=== PATIENT | female | born 1955 | race Caucasian/White ===

== ENCOUNTER 2017-03-04 06:00 | Day surgery (SDC) | payer OTHER ==
[~2017-03-04] VITALS: Ht 160 cm; Wt 84.3 kg
[~2017-03-04 06:00] MED LIST: ATORVASTATIN PO; LOSARTAN PO; OMEPRAZOLE PO
[2017-03-04 07:05] VITALS: Ht 160 cm; Wt 84.3 kg
[2017-03-04] MEDS ORDERED: AMLO-147 PO (07:13)
[2017-03-04 07:32] VITALS: BP 145/75; PULSE 68; RESP 18
[2017-03-04] MEDS ORDERED: PROPOFOL 60 ML ONE (08:09)
--- NOTE | 2017-03-04 08:21 | OPPN ---
Date/Time of Note Date/Time of Note DATE: 03/04/17 TIME: 08:20 Operative Report Preoperative Diagnosis Screening Postoperative Diagnosis Sigmoid polyp was removed Internal hemorrhoids Operation/Procedure Performed Colonoscopy and biopsy Surgeon see signature line [employer] assistant None Anesthesia: MAC Estimated blood loss: none Transfusion Required none Specimen Sigmoid colon biopsy Grafts/Implants none Complications none ANNAMARIE GUAMAN MD Mar 04, 2017 08:21
[2017-03-04 08:48] VITALS: BP 107/63; PULSE 56; RESP 16
--- NOTE | 2017-03-04 12:31 | GILP ---
DATE OF PROCEDURE: 03/04/2017 NAME OF PROCEDURE: Colonoscopy and biopsy. SURGEON: Annamarie Mercado MD PREOPERATIVE DIAGNOSIS: Screening colonoscopy. POSTOPERATIVE DIAGNOSES: 1. Colonoscopy all the way to the cecum. 2. Small sigmoid colon polyp was removed. 3. Internal hemorrhoids. INDICATION FOR THE PROCEDURE: Ms. Kathy Peres is a 62-year-old female patient who was schedu led for screening colonoscopy. The procedure and possible complications are well explained to the patient. The patient understood and consented to the procedure. DESCRIPTION OF PROCEDURE: Under the influence of anesthesia, the colonoscope was carefully introduc ed in the rectum and under direct vision, it was advanced all the way to the cecum. FINDINGS: The patient had a small sigmoid colon polyp and it was removed using the biopsy forceps. She had internal hemorrhoids. She tolerated the procedure very well and there was no complication from the procedure. At the end of the procedure, she was awake with stable vital signs and she was discharged home to the care of h er family. IMPRESSION: Please see postoperative diagnoses. PLAN: Next screening colonoscopy in 10 years. Dictated By: ANNAMARIE HARO/WILFREDO Conf#: [id number] DID#: [id number]
== END 2017-03-04 16:53 | disposition home or self-care (01) ==
LOC: GIL 06:00
PROVIDERS: ATTEND Internal Medicine Gastroenterology
DX: Z12.11 Encounter for screening for malignant neoplasm of colon (principal); D12.5 Benign neoplasm of sigmoid colon; K64.8 Other hemorrhoids; I10 Essential (primary) hypertension; E78.5 Hyperlipidemia, unspecified
CPT/HCPCS: 45380; Z7610

== ENCOUNTER 2018-05-22 15:09 | Inpatient (IN) | payer OTHER ==
[~2018-05-22] VITALS: Ht 157.5 cm; Wt 88.2 kg
[~2018-05-22 15:09] MED LIST changes: +AMLO-147 PO; -OMEPRAZOLE PO
--- NOTE | 2018-05-22 16:20 | ERD ---
ER Documentation Chief Complaint Chief Complaint Complains of headache with blurred vision and facial droop since today HPI 63-year-old female who presents with family member. The patient has had greater than 24 hours of symptoms that include headache, right facial droop sparing the forehead, generalized weakness and blurred vision. Patient denies any significant slurred speech or motor weakness of the upper or lower extremities. Headache is mild and frontal and not sudden in onset. Blood pressure was in the 200s at home and improving currently. During the patient's encounter translation services were utilized Language: [Aremenian] Source: [Family] ROS All systems reviewed and are negative except as per history of present illness. Medications Home Meds Reported Medications Amlodipine Besylate* (Amlodipine Besylate*) 10 Mg Tablet, 10 MG PO DAILY, #30 TAB 03/04/17 [Atorvastatin] No Conflict Check, PO DAILY 12/12/15 [Losartan] No Conflict Check, PO DAILY 12/12/15 Allergies Allergies: Uncoded Allergies: PCN (Adverse Reaction, Severe, RASHES, 03/04/17) PMhx/Soc History of Surgery: Yes (LEFT ANKLE) Anesthesia Reaction: No Hx Neurological Disorder: No Hx Respiratory Disorders: No Hx Cardiac Disorders: Yes (HEART PALPITATION) Hx Psychiatric Problems: No Hx Miscellaneous Medical Probl: Yes (HYPERLIPEDEMIA) Hx Alcohol Use: No Hx Substance Use: No Hx Tobacco Use: No Smoking Status: Never smoker FmHx Family History: No diabetes Physical Exam Vitals Vital Signs Date Temp Pulse Resp B/P (MAP) Pulse Ox O2 O2 Flow FiO2 Time Delivery Rate 05/22/18 72 20 131/80 98 Room Air 16:22 (97) 05/22/18 99.4 75 20 167/89 97 15:21 (115) Physical Exam General: Well developed, well nourished, no acute distress Head: Normocephalic, atraumatic. Eyes: Pupils equally reactive, EOM intact ENT: Moist mucous membranes Neck: Supple, no lymphadenopathy Respiratory: Lungs clear bilaterally, no distress Cardiovascular: RRR, no murmurs, rubs, or gallops Abdominal: Soft, non-tender, non-distended, no peritoneal signs : Deferred MSK: No edema, no unilateral swelling, 5/5 strength Neurologic: Alert and oriented, moving all extremities, the patient has a right- sided facial droop with sparing of the forehead. No pronator drift. 5 out of 5 strength. Normal rapid alternating movements. Steady gait without ataxia. Skin: No rash Psych: Normal mood Result Diagram: 05/22/18 1544 05/22/18 1544 Results 24 hrs Laboratory Tests Test 05/22/18 15:44 05/22/18 15:51 White Blood Count 6.5 10^3/ul Red Blood Count 4.08 10^6/ul Hemoglobin 13.1 g/dl Hematocrit 37.9 % Mean Corpuscular Volume 92.9 fl Mean Corpuscular Hemoglobin 32.1 pg Mean Corpuscular Hemoglobin Concent 34.6 g/dl Red Cell Distribution Width 11.2 % Platelet Count 163 10^3/UL Mean Platelet Volume 10.1 fl Immature Granulocytes % 0.500 % Neutrophils % 58.7 % Lymphocytes % 26.9 % Monocytes % 10.2 % Eosinophils % 3.2 % Basophils % 0.5 % Nucleated Red Blood Cells % 0.0 /100WBC Immature Granulocytes # 0.030 10^3/ul Neutrophils # 3.8 10^3/ul Lymphocytes # 1.7 10^3/ul Monocytes # 0.7 10^3/ul Eosinophils # 0.2 10^3/ul Basophils # 0.0 10^3/ul Nucleated Red Blood Cells # 0.0 10^3/ul Prothrombin Time 12.7 Sec Prothrombin Time Ratio 1.0 INR International Normalized Ratio 0.94 Activated Partial Thromboplast Time 32.6 Sec Sodium Level 144 mmol/L Potassium Level 4.2 mmol/L Chloride Level 102 mmol/L Carbon Dioxide Level 27 mmol/L Anion Gap 15 Blood Urea Nitrogen 23 mg/dl Creatinine 1.02 mg/dl Est Glomerular Filtrat Rate mL/min 54 mL/min Glucose Level 110 mg/dl Hemoglobin A1c 5.3 % Calcium Level 9.8 mg/dl Total Bilirubin 0.9 mg/dl Direct Bilirubin 0.00 mg/dl Indirect Bilirubin 0.9 mg/dl Aspartate Amino Transf (AST/SGOT) 30 IU/L Alanine Aminotransferase (ALT/SGPT) 42 IU/L Alkaline Phosphatase 74 IU/L Troponin I < 0.012 ng/ml Total Protein 7.8 g/dl Albumin 4.7 g/dl Globulin 3.10 g/dl Albumin/Globulin Ratio 1.51 Triglycerides Level 326 mg/dl Cholesterol Level 186 mg/dl LDL Cholesterol, Calculated 82 mg/dl HDL Cholesterol 39 mg/dl Cholesterol/HDL Ratio 4.7 RATIO Urine Color STRAW Urine Clarity CLEAR Urine pH 5.0 Urine Specific [place] 1.011 Urine Ketones NEGATIVE mg/dL Urine Nitrite NEGATIVE mg/dL Urine Bilirubin NEGATIVE mg/dL Urine Urobilinogen NEGATIVE mg/dL Urine Leukocyte Esterase NEGATIVE Familia/ul Urine Microscopic RBC 2 /HPF Urine Microscopic WBC 1 /HPF Urine Hemoglobin 1+ mg/dL Urine Glucose NEGATIVE mg/dL Urine Total Protein NEGATIVE mg/dl Urine Opiates Screen Negative Urine Barbiturates Negative Urine Amphetamines Screen Negative Urine Benzodiazepines Screen Negative Urine Cocaine Screen Negative Urine Cannabinoids Negative Current Medications Medications Dose Sig/Tina Start Time Status Last (Trade) Ordered Route PRN Stop Time Admin Dose Reason Admin Aspirin 162 mg ONCE ONCE 05/22/18 DC 05/22/18 (Aspirin) PO 16:30 17:11 05/22/18 16:31 Ondansetron 4 mg ER BRIDGE 05/22/18 HCl (Zofran PRN IV 17:30 Inj) NAUSEA/VOMITI 05/23/18 17:29 NG 650 mg ER BRIDGE 05/22/18 Acetaminophen PRN PO 17:30 (Tylenol .MILD PAIN 05/23/18 17:29 Tab) 1-3 OR TEMP Procedures/MDM EKG, MONITORS, & DIAGNOSTIC IMAGING: EKG: I reviewed and interpreted a 12-lead EKG. Rhythm: Normal sinus rhythm ST Changes: No contiguous ST segment elevations T waves: No contiguous T wave inversions Impression: [No evidence of acute cardiac ischemia] Chest x-ray: I reviewed and interpreted a 1 view of the chest Mediastinum: No enlargement Cardiac silhouette: No cardiomegaly Airspace: Clear lung dee bilaterally without evidence of pneumothorax Bones: No evidence of fracture CT brain: IMPRESSION: No acute intracranial pathology identified. RPTAT: VV LAB INTERPRETATION: I reviewed the laboratory testing and it shows [no evidence of acute process] MEDICAL DECISION MAKING: Patient presents with greater than 24 hours of focal neurologic deficit. This is concerning for stroke. The patient has a facial droop on the right side with forehead sparing concerning for central process rather than peripheral 7th nerve palsy. Brantley's palsy still on the differential but needs to be diagnosis of exclusion at this point. Patient warrants inpatient hospitalization for further stroke evaluation and workup. The patient is not a TPA candidate given symptoms greater than 24 hours. Similar reason and goes for interventional candidacy. ER COURSE: * Aspirin after negative CT brain * The patient's blood pressure is improving without intervention. The patient will be admitted for further management and workup CONSULTATION: [None] DISPOSITION PLAN: Telemetry admission for management of possible stroke Accepting care team and consultations: I discussed the current laboratory data, diagnostic imaging and emergency care provided. Admitting team: Dr. Ching Admitting team indication: Insurance directed Departure Diagnosis: Primary Impression: Facial droop Additional Impression: Hypertensive urgency Condition: Stable CARLOS A MELENDEZ MD May 22, 2018 16:20
[2018-05-22] MEDS ORDERED: ASPIRIN 81 MG TAB PO ONE (16:30)
[2018-05-22] MEDS ORDERED: ONDANSETRON 4 MG INJ IV PRN (17:30)
[2018-05-22] MEDS ORDERED: ACETAMINOPHEN 325 MG TAB PO PRN (17:30)
[2018-05-22] MEDS ORDERED: HYDROCODONE/APAP (5/325) TAB PO PRN (18:00)
[2018-05-22] MEDS ORDERED: NACL 0.9% 3 ML SYG IV SCH (18:00)
[2018-05-22 18:40] VITALS: BP 147/72; PULSE 65; RESP 18
[2018-05-22 18:42] VITALS: PULSE 68
[2018-05-22 18:45] VITALS: Ht 157.5 cm; Wt 88.2 kg
--- NOTE | 2018-05-22 19:16 | HP ---
Date/Time of Note Date/Time of Note DATE: 05/22/18 TIME: 19:10 Assessment/Plan VTE Prophylaxis Pharmacological prophylaxis: heparin Lines/Catheters IV Catheter Type (from Nrs): Saline Lock Assessment/Plan Hospital Course 63 yo female with h/o hypertension, "enlarged heart" presents with headache and left sided facial droop - Most concerning is this represents a stroke syndrome, though reassuring that her head CT is normal. Perhaps a perihperal neuropathy, though does not involve forehead as one would expect with [place] - MRI pending - US carotids - Neurology consult Hypertension: - Continue home losartan and amlodipine "Enlarged heart": - Check echocardiogram Discharge pending above workup Result Diagram: 05/22/18 1544 05/22/18 1544 Results 24hrs Laboratory Tests Test 05/22/18 15:44 05/22/18 15:51 White Blood Count 6.5 Red Blood Count 4.08 L Hemoglobin 13.1 Hematocrit 37.9 Mean Corpuscular Volume 92.9 Mean Corpuscular Hemoglobin 32.1 Mean Corpuscular Hemoglobin Concent 34.6 Red Cell Distribution Width 11.2 L Platelet Count 163 Mean Platelet Volume 10.1 Immature Granulocytes % 0.500 H Neutrophils % 58.7 Lymphocytes % 26.9 Monocytes % 10.2 Eosinophils % 3.2 Basophils % 0.5 Nucleated Red Blood Cells % 0.0 Immature Granulocytes # 0.030 Neutrophils # 3.8 Lymphocytes # 1.7 Monocytes # 0.7 Eosinophils # 0.2 Basophils # 0.0 Nucleated Red Blood Cells # 0.0 Prothrombin Time 12.7 Prothrombin Time Ratio 1.0 INR International Normalized Ratio 0.94 Activated Partial Thromboplast Time 32.6 Sodium Level 144 Potassium Level 4.2 Chloride Level 102 Carbon Dioxide Level 27 Anion Gap 15 H Blood Urea Nitrogen 23 H Creatinine 1.02 H Est Glomerular Filtrat Rate mL/min 54 L Glucose Level 110 Hemoglobin A1c 5.3 Calcium Level 9.8 Total Bilirubin 0.9 Direct Bilirubin 0.00 Indirect Bilirubin 0.9 Aspartate Amino Transf (AST/SGOT) 30 Alanine Aminotransferase (ALT/SGPT) 42 Alkaline Phosphatase 74 Troponin I < 0.012 Total Protein 7.8 Albumin 4.7 Globulin 3.10 Albumin/Globulin Ratio 1.51 Triglycerides Level 326 H Cholesterol Level 186 LDL Cholesterol, Calculated 82 HDL Cholesterol 39 Cholesterol/HDL Ratio 4.7 Urine Color STRAW Urine Clarity CLEAR Urine pH 5.0 Urine Specific [place] 1.011 Urine Ketones NEGATIVE Urine Nitrite NEGATIVE Urine Bilirubin NEGATIVE Urine Urobilinogen NEGATIVE Urine Leukocyte Esterase NEGATIVE Urine Microscopic RBC 2 Urine Microscopic WBC 1 Urine Hemoglobin 1+ H Urine Glucose NEGATIVE Urine Total Protein NEGATIVE Urine Opiates Screen Negative Urine Barbiturates Negative Urine Amphetamines Screen Negative Urine Benzodiazepines Screen Negative Urine Cocaine Screen Negative Urine Cannabinoids Negative HPI/ROS Admit Date/Time Admit Date/Time May 22, 2018 at 17:05 Hx of Present Illness 63 yo female with h/o hypertension, "enlarged heart" presents with headache and facial droop patient describes headache which started two days ago. Has persisted. Constant pain. Nonpulsatile. Bitemporal. Has also developed facial droop involving the left half of her face from eye down. Normal sensation. No peripheral symptoms of weakness or numbness. No recent illness ROS Constitutional: no complaints, improved Eyes: no complaints ENT: no complaints Respiratory: no complaints Cardiovascular: no complaints Gastrointestinal: no complaints Genitourinary: no complaints Musculoskeletal: no complaints Skin: no complaints Neurologic: no complaints Endocrine: no complaints Lymphatic: no complaints Psychological: no complaints, nl mood/affect Immunologic: no complaints PMH/Family/Social Past Medical History Medical History: hypertension Medications Current Medications Amlodipine Besylate (Norvasc) 10 mg DAILY PO ; Start 05/23/18 at 09:00 Atorvastatin Calcium (Lipitor) 20 mg HS PO ; Start 05/22/18 at 21:00 Losartan Potassium (Cozaar) 25 mg DAILY PO ; Start 05/23/18 at 09:00 IV Flush (NS 3 ml) 3 ml PER PROTOCOL IV ; Start 05/22/18 at 18:00 Acetaminophen/ Hydrocodone Bitart ([place] (5/325)) 1 tab Q6H PRN PO .MOD PAIN 4- 6; Start 05/22/18 at 18:00 Enoxaparin Sodium (Lovenox) 30 mg DAILY SC ; Start 05/23/18 at 09:00 Uncoded Allergies: PCN (Adverse Reaction, Severe, RASHES, 03/04/17) Past Surgical History Past Surgical Hx: no surgical history Family History Significant Family History: no pertinent family hx Social History Alcohol Use: none Smoking Status: Never smoker Drug Use: none Exam/Review of Systems Vital Signs Vitals Vital Signs Date Temp Pulse Resp B/P (MAP) Pulse Ox O2 O2 Flow FiO2 Time Delivery Rate 2/18/19 68 18:42 05/22/18 98.5 18 147/72 97 Room Air 18:40 (97) Exam Exam Alert, oriented x3 Pleasant appropriate No distress Obese L sided facial droop from eye to chin. Does not involve forehead Sensation she says is diminished on R side of face at V1 and V2 PERRLA CN otherwise intact Strenght 5/5 throughout Sensation intact otherwise throughout 1/6 systolic murmur Normal JVD Clear lungs Obese belly No edema YANG SALAZAR MD May 22, 2018 19:16
[2018-05-22 20:00] VITALS: BP 139/76; PULSE 74; PULSE 76; RESP 16
[2018-05-22] MEDS: LORAZEPAM 2 MG INJ IV PRN (22:15)
[2018-05-22] MEDS: ATORVASTATIN 20 MG TAB PO SCH (22:30)
[2018-05-23] VITALS (10 sets, daily range): BP systolic 122–131; BP diastolic 66–80; PULSE 60–75; RESP 16–20
[2018-05-23] MEDS: AMLODIPINE 10 MG TAB PO SCH (08:21)
[2018-05-23] MEDS: ENOXAPARIN 30 MG/0.3 ML SYG SC SCH (08:26)
[2018-05-23] MEDS ORDERED: LOSARTAN 25 MG TAB PO SCH (09:00)
--- NOTE | 2018-05-23 12:05 | RADRPT ---
Echocardiogram Report Patient Name: Girish CASAStient ID: [id number] : 1955 (63y 3m)Study Date: 05/23/2018 8:45:07 AM Gender: FAccession #: [id number] Tech: Elgin Beltre [facility] Location: [id number] Ref.Physician: YANG SALAZAR Height(Cm): BSA: Weight(Kg): Quality: AdequateAccount #: Procedures: Echocardiographic Report: Transthoracic echocardiogram with complete 2D, M-Mode, and doppler examination. Indications: Murmur. Measurements: 2D/M Mode Doppler Measurement Value Normal Range Measurement Value Normal Range LVIDd 2D 3.8 [ 3.8 - 5.2 ] cm RUBIO VTI 1.2 [ 2.0 - 4.0 ] cm2 LVIDs 2D 2.3 [ 2.2 - 3.5 ] cm AV Mean Carlos 1.9 [ 70.0 - 90.0 ] cm/sec LVPWd 2D 1.3 [ 0.6 - 0.9 ] cm AV Mean PG 17.0 [ 2.0 - 4.0 ] mmHg IVSd 2D 1.2 [ 0.6 - 0.9 ] cm AV VTI 59.3 cm AoR Diam 2D 2.5 [ 2.3 - 3.1 ] cm LVOT Mean Carlos 0.6 [ 60.0 - 80.0 ] cm/sec EDV 2D 62.0 [ 46.0 - 106.0 ] ml LVOT Mean PG 2.0 [ 1.0 - 3.0 ] mmHg ESV 2D 17.5 [ 14.0 - 42.0 ] ml LVOT Peak Carlos 1.0 [ 70.0 - 110.0 ] cm/sec EF 2D 71.8 [ 54.0 - 74.0 ] percent LVOT Peak PG 4.0 [ 2.0 - 6.0 ] mmHg LA Dimen 2D 3.5 [ 2.7 - 3.8 ] cm LVOT VTI 22.9 [ 20.0 - 30.0 ] cm LVOT Diam 2.0 [ 2.1 - 2.5 ] cm MV E Peak Carlos 0.7 [ 60.0 - 130.0 ] cm/sec MV A Peak Carlos 1.0 [ 100.0 - 120.0 ] cm/sec MV E/A 0.7 [ 0.8 - 1.5 ] ratio MV Decel Time 225 [ 104 - 258 ] msec Lat E` Carlos 0.1 [ 10.0 - 15.0 ] cm/sec Lateral E/E` 9.4 [ 1.0 - 2.0 ] ratio Med E` Carlos 0.1 cm/sec MV E/A 0.7 [ 0.8 - 1.5 ] ratio TR Peak Carlos 2.1 [ 100.0 - 280.0 ] cm/sec TR Peak PG 17.0 mmHg RVSP 27.0 [ 10.0 - 36.0 ] mmHg Findings: Left Ventricle: Normal left ventricular systolic function. Normal left ventricular cavity size. Mild concentric left ventricular hypertrophy. Ejection fraction is visually estimated at 65 %. Tissue Doppler/Mitral Doppler indices are consistent with impaired relaxation (Stage I diastolic dysfunction). Right Ventricle: Normal right ventricular size. Normal right ventricular systolic function. Left Atrium: The left atrium is normal in size. Right Atrium: The right atrium is normal in size. Mitral Valve: Mild mitral leaflet calcification. Mild mitral annular calcification. Trace mitral regurgitation. Aortic Valve: Mild to moderate aortic stenosis. Aortic valve Max velocity 2.81 m/sec. Max PG 31.60 mmHg. Mean PG 17.00 mmHg. Aortic valve area 1.18 cm2. Aortic cusps appear moderately calcified. Tricuspid Valve: Normal appearance of the tricuspid valve. Estimated peak PA systolic pressure 27 mmHg. There is mild tricuspid regurgitation. Pulmonic Valve: Pulmonic valve not well visualized. Pericardium: Normal pericardium with no significant pericardial effusion. Aorta: Normal aortic root. IVC: Normal size and normal respiratory collapse consistent with normal right atrial pressure. Conclusions: Normal left ventricular systolic function. Normal left ventricular cavity size. Mild concentric left ventricular hypertrophy. Ejection fraction is visually estimated at 65 %. Tissue Doppler/Mitral Doppler indices are consistent with impaired relaxation (Stage I diastolic dysfunction). Mild mitral leaflet calcification. Mild mitral annular calcification. Trace mitral regurgitation. Mild to moderate aortic stenosis. Aortic valve Max velocity 2.81 m/sec. Max PG 31.60 mmHg. Mean PG 17.00 mmHg. Aortic valve area 1.18 cm2. Aortic cusps appear moderately calcified. Normal appearance of the tricuspid valve. Estimated peak PA systolic pressure 27 mmHg. There is mild tricuspid regurgitation. Electronically Signed By: Onel Alexandra 2018-05-23 12:05:00 PST
[2018-05-23] MEDS: LORAZEPAM 2 MG INJ IV PRN (14:15)
--- NOTE | 2018-05-23 15:25 | PN ---
Date/Time of Note Date/Time of Note DATE: 05/23/18 TIME: 15:25 Assessment/Plan VTE Prophylaxis Risk score (from Ns)>0 risk: 3 SCD applied (from Ns): Yes Pharmacological prophylaxis: LMWH Lines/Catheters IV Catheter Type (from [facility]): Saline Lock Assessment/Plan Hospital Course SUBJECTIVE: Complaints of occipital headache. OBJECTIVE: Physical Exam General: Obese, 63 year-old female lying in bed in no apparent distress. HEENT: Normocephalic, atraumatic. Eyes: Anicteric sclerae, conjunctivae clear. ENT: Nasal septum midline, oral mucosa moist. Neck supple. Respiratory: Bilaterally clear breath sounds. No use of accessory muscles of respiration. No adventitious breath sounds. Cardiovascular: S1, S2 heard. Grade 2 out of 6 systolic ejection murmur. Abdomen: Soft, nontender, and nondistended. Bowel sounds positive in all 4 quadrants. Genitourinary: Deferred. Extremities: No cyanosis, no clubbing, no edema. Peripheral pulses palpable. Neurologic: The patient is awake, alert, and oriented. Left-sided facial droop. Skin: Normal skin turgor. No skin rashes. Labs & Vitals per chart ASSESSMENT & PLAN 63-year-old female with past medical history of hypertension dyslipidemia. The patient came to the emergency room with chief complaint of headache with blurred vision and facial droop. The patient was noted to have blood pressure in 200s at home. The patient was admitted to inpatient setting for further treatment and evaluation. 1. Acute onset of left-sided facial droop. -Etiology unclear. -?Brantley's palsy. -Continue aspirin and statins. -Brain CT scan negative. -Patient could not tolerate brain MRI because of claustrophobia. -Neurology evaluation. 2. Hypertension. -Continue antihypertensives. -DC ARB because of worsening renal function. 3. Dyslipidemia. -Continue statins. 4. Acute kidney injury. -Unknown baseline creatinine. -Stop nephrotoxic medications. 5. Mild to moderate aortic stenosis. 6. Obesity. -BMI more than 35. -Will advise weight reduction. 7. Fluids, electrolytes, and nutrition. Low-cholesterol diet. 8. DVT prophylaxis --Subcutaneous Lovenox (renal dose). 9. Plan. -Continue aspirin and statins. -Obtain neurology evaluation. The patient was seen in collaboration with Dr. Mi. Result Diagram: 05/23/18 0512 05/23/18 0512 Results 24hrs Laboratory Tests Test 05/22/18 15:44 05/22/18 15:51 05/23/18 05:12 White Blood Count 6.5 6.2 Red Blood Count 4.08 L 3.98 L Hemoglobin 13.1 12.8 Hematocrit 37.9 37.1 Mean Corpuscular Volume 92.9 93.2 Mean Corpuscular Hemoglobin 32.1 32.2 Mean Corpuscular Hemoglobin Concent 34.6 34.5 Red Cell Distribution Width 11.2 L 11.4 L Platelet Count 163 145 Mean Platelet Volume 10.1 10.3 Immature Granulocytes % 0.500 H 0.300 Neutrophils % 58.7 58.0 Lymphocytes % 26.9 26.9 Monocytes % 10.2 11.7 H Eosinophils % 3.2 2.8 Basophils % 0.5 0.3 Nucleated Red Blood Cells % 0.0 0.0 Immature Granulocytes # 0.030 0.020 Neutrophils # 3.8 3.6 Lymphocytes # 1.7 1.7 Monocytes # 0.7 0.7 Eosinophils # 0.2 0.2 Basophils # 0.0 0.0 Nucleated Red Blood Cells # 0.0 0.0 Prothrombin Time 12.7 Prothrombin Time Ratio 1.0 INR International Normalized Ratio 0.94 Activated Partial Thromboplast Time 32.6 Sodium Level 144 146 H Potassium Level 4.2 4.1 Chloride Level 102 104 Carbon Dioxide Level 27 27 Anion Gap 15 H 15 H Blood Urea Nitrogen 23 H 25 H Creatinine 1.02 H 1.14 H Est Glomerular Filtrat Rate mL/min 54 L 48 L Glucose Level 110 121 Hemoglobin A1c 5.3 5.2 Calcium Level 9.8 9.9 Total Bilirubin 0.9 1.1 Direct Bilirubin 0.00 0.00 Indirect Bilirubin 0.9 1.1 Aspartate Amino Transf (AST/SGOT) 30 27 Alanine Aminotransferase (ALT/SGPT) 42 42 Alkaline Phosphatase 74 64 Troponin I < 0.012 Total Protein 7.8 7.2 Albumin 4.7 4.4 Globulin 3.10 2.80 Albumin/Globulin Ratio 1.51 1.57 Triglycerides Level 326 H Cholesterol Level 186 LDL Cholesterol, Calculated 82 HDL Cholesterol 39 Cholesterol/HDL Ratio 4.7 Urine Color STRAW Urine Clarity CLEAR Urine pH 5.0 Urine Specific [place] 1.011 Urine Ketones NEGATIVE Urine Nitrite NEGATIVE Urine Bilirubin NEGATIVE Urine Urobilinogen NEGATIVE Urine Leukocyte Esterase NEGATIVE Urine Microscopic RBC 2 Urine Microscopic WBC 1 Urine Hemoglobin 1+ H Urine Glucose NEGATIVE Urine Total Protein NEGATIVE Urine Opiates Screen Negative Urine Barbiturates Negative Urine Amphetamines Screen Negative Urine Benzodiazepines Screen Negative Urine Cocaine Screen Negative Urine Cannabinoids Negative Exam/Review of Systems Exam Vitals Vital Signs Date Temp Pulse Resp B/P (MAP) Pulse Ox O2 O2 Flow FiO2 Time Delivery Rate 05/23/18 72 12:01 05/23/18 98.0 20 130/80 96 12:00 (97) 05/22/18 Room Air 18:40 Intake and Output 05/22/18 05/22/18 05/23/18 1515:00 23:00 07:00 IntakeIntake Total 250 ml BalanceBalance 250 ml Results Results 24hrs Laboratory Tests Test 05/22/18 15:44 05/22/18 15:51 05/23/18 05:12 White Blood Count 6.5 6.2 Red Blood Count 4.08 L 3.98 L Hemoglobin 13.1 12.8 Hematocrit 37.9 37.1 Mean Corpuscular Volume 92.9 93.2 Mean Corpuscular Hemoglobin 32.1 32.2 Mean Corpuscular Hemoglobin Concent 34.6 34.5 Red Cell Distribution Width 11.2 L 11.4 L Platelet Count 163 145 Mean Platelet Volume 10.1 10.3 Immature Granulocytes % 0.500 H 0.300 Neutrophils % 58.7 58.0 Lymphocytes % 26.9 26.9 Monocytes % 10.2 11.7 H Eosinophils % 3.2 2.8 Basophils % 0.5 0.3 Nucleated Red Blood Cells % 0.0 0.0 Immature Granulocytes # 0.030 0.020 Neutrophils # 3.8 3.6 Lymphocytes # 1.7 1.7 Monocytes # 0.7 0.7 Eosinophils # 0.2 0.2 Basophils # 0.0 0.0 Nucleated Red Blood Cells # 0.0 0.0 Prothrombin Time 12.7 Prothrombin Time Ratio 1.0 INR International Normalized Ratio 0.94 Activated Partial Thromboplast Time 32.6 Sodium Level 144 146 H Potassium Level 4.2 4.1 Chloride Level 102 104 Carbon Dioxide Level 27 27 Anion Gap 15 H 15 H Blood Urea Nitrogen 23 H 25 H Creatinine 1.02 H 1.14 H Est Glomerular Filtrat Rate mL/min 54 L 48 L Glucose Level 110 121 Hemoglobin A1c 5.3 5.2 Calcium Level 9.8 9.9 Total Bilirubin 0.9 1.1 Direct Bilirubin 0.00 0.00 Indirect Bilirubin 0.9 1.1 Aspartate Amino Transf (AST/SGOT) 30 27 Alanine Aminotransferase (ALT/SGPT) 42 42 Alkaline Phosphatase 74 64 Troponin I < 0.012 Total Protein 7.8 7.2 Albumin 4.7 4.4 Globulin 3.10 2.80 Albumin/Globulin Ratio 1.51 1.57 Triglycerides Level 326 H Cholesterol Level 186 LDL Cholesterol, Calculated 82 HDL Cholesterol 39 Cholesterol/HDL Ratio 4.7 Urine Color STRAW Urine Clarity CLEAR Urine pH 5.0 Urine Specific [place] 1.011 Urine Ketones NEGATIVE Urine Nitrite NEGATIVE Urine Bilirubin NEGATIVE Urine Urobilinogen NEGATIVE Urine Leukocyte Esterase NEGATIVE Urine Microscopic RBC 2 Urine Microscopic WBC 1 Urine Hemoglobin 1+ H Urine Glucose NEGATIVE Urine Total Protein NEGATIVE Urine Opiates Screen Negative Urine Barbiturates Negative Urine Amphetamines Screen Negative Urine Benzodiazepines Screen Negative Urine Cocaine Screen Negative Urine Cannabinoids Negative Medications Medication Current Medications Amlodipine Besylate (Norvasc) 10 mg DAILY PO Last administered on 05/23/18 08:21; Admin Dose 10 MG; Start 05/23/18 at 09:00 Atorvastatin Calcium (Lipitor) 20 mg HS PO ; Start 05/22/18 at 21:00 Losartan Potassium (Cozaar) 25 mg DAILY PO Last administered on 05/23/18 08:21; Admin Dose 25 MG; Start 05/23/18 at 09:00 IV Flush (NS 3 ml) 3 ml PER PROTOCOL IV ; Start 05/22/18 at 18:00 Acetaminophen/ Hydrocodone Bitart ([place] (5/325)) 1 tab Q6H PRN PO .MOD PAIN 4- 6; Start 05/22/18 at 18:00 Enoxaparin Sodium (Lovenox) 30 mg DAILY SC Last administered on 05/23/18 08:26; Admin Dose 30 MG; Start 05/23/18 at 09:00 Lorazepam (Ativan) 1 mg ONCE PRN IV prior to MRI Last administered on 05/23/18 14:15; Admin Dose 1 MG; Start 05/22/18 at 20:30; Stop 05/23/18 at 20:29 NATHAN KIM NP May 23, 2018 15:25
--- NOTE | 2018-05-23 16:59 | CONS ---
Assessment/Plan Assessment/Plan Hospital Course 63 yo F with multiple comorbidities who presents for evaluation of a L facial droop and other sx... for which neurology is consulted. 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 MRI brain is reassuringly without acute intracranial pathology. P: Start Predisone 60mg daily, valtrex 1g BID x 10 days Other medical management per primary Will follow clinically Consultation Date/Type/Reason Admit Date/Time May 22, 2018 at 17:05 Type of Consult Neurology Reason for Consultation R facial droop Requesting Provider: YANG SALAZAR MD Date/Time of Note DATE: 05/23/18 TIME: 16:59 Hx of Present Illness 63 yo F with hx of HTN, cardiomegaly who presents for evaluation of headache and L facial droop. History was obtained from pt, family at bedside and chart review. The pt states that she had a gradual onset of a severe and constant headache, that was sharp and an 8/10, originating from behind her R eye and radiating towards the back of her head. During that headache, she noticed that her face felt weaker and when she looked in the mirror, she noticed that she had a facial droop. She currently endorses facial weakness with diminished sensation. Denies other areas of focal weakness or sensory loss, headache, dizziness, recent changes in speech/vision, difficulty walking at this time. It is elsewhere noted: Hx of Present Illness 63 yo female with h/o hypertension, "enlarged heart" presents with headache and facial droop patient describes headache which started two days ago. Has persisted. Constant pain. Nonpulsatile. Bitemporal. Has also developed facial droop involving the left half of her face from eye down. Normal sensation. No peripheral symptoms of weakness or numbness. No recent illness negative unless noted otherwise in HPI Exam/Review of Systems Exam Vitals Vital Signs Date Temp Pulse Resp B/P (MAP) Pulse Ox O2 O2 Flow FiO2 Time Delivery Rate 05/23/18 70 16:01 05/23/18 98.3 20 123/66 93 15:54 (85) 05/22/18 Room Air 18:40 Intake and Output 05/22/18 05/22/18 05/23/18 1515:00 23:00 07:00 IntakeIntake Total 250 ml BalanceBalance 250 ml Exam PE: Gen Appearance: No Apparent Distress HEENT: Normocephalic Cardiovascular: Regular rate Lungs: Clear bilaterally Abdomen: Soft Extremities: Dry NE: The patient was alert and oriented. Language was normal. Fund of knowledge was normal. Pupils were equal and reactive to light. There was no afferent pupillary defect. Visual dee were normal. Funduscopic examination was limited. Extra-ocular movements were full. Ptosis was absent. There was no nystagmus. Facial sensation was diminished on the. Face was asymmetric. Hearing was intact. Palate movements were normal. Neck strength was normal. There was normal tongue bulk and speed of movement. Tone was normal. Muscle bulk was normal. I did not see fasciculations. Arms and legs were strong. Vibration sensation was normal. Temperature and pinprick sensation was normal. Rapid alternating movements were normal. There was no dysmetria. There was no intention tremor. Gait was deferred due to bedrest. Arm and leg reflexes were 2+ and symmetric. Coburn's sign was absent. Plantar responses were flexor. Results Result Diagram: 05/23/18 0512 05/23/18 0512 Results 24hrs Laboratory Tests Test 05/23/18 05:12 White Blood Count 6.2 Red Blood Count 3.98 L Hemoglobin 12.8 Hematocrit 37.1 Mean Corpuscular Volume 93.2 Mean Corpuscular Hemoglobin 32.2 Mean Corpuscular Hemoglobin Concent 34.5 Red Cell Distribution Width 11.4 L Platelet Count 145 Mean Platelet Volume 10.3 Immature Granulocytes % 0.300 Neutrophils % 58.0 Lymphocytes % 26.9 Monocytes % 11.7 H Eosinophils % 2.8 Basophils % 0.3 Nucleated Red Blood Cells % 0.0 Immature Granulocytes # 0.020 Neutrophils # 3.6 Lymphocytes # 1.7 Monocytes # 0.7 Eosinophils # 0.2 Basophils # 0.0 Nucleated Red Blood Cells # 0.0 Sodium Level 146 H Potassium Level 4.1 Chloride Level 104 Carbon Dioxide Level 27 Anion Gap 15 H Blood Urea Nitrogen 25 H Creatinine 1.14 H Est Glomerular Filtrat Rate mL/min 48 L Glucose Level 121 Hemoglobin A1c 5.2 Calcium Level 9.9 Total Bilirubin 1.1 Direct Bilirubin 0.00 Indirect Bilirubin 1.1 Aspartate Amino Transf (AST/SGOT) 27 Alanine Aminotransferase (ALT/SGPT) 42 Alkaline Phosphatase 64 Total Protein 7.2 Albumin 4.4 Globulin 2.80 Albumin/Globulin Ratio 1.57 Medications Medication Current Medications Amlodipine Besylate (Norvasc) 10 mg DAILY PO Last administered on 05/23/18 08:21; Admin Dose 10 MG; Start 05/23/18 at 09:00 Atorvastatin Calcium (Lipitor) 20 mg HS PO ; Start 05/22/18 at 21:00 IV Flush (NS 3 ml) 3 ml PER PROTOCOL IV ; Start 05/22/18 at 18:00 Acetaminophen/ Hydrocodone Bitart ([place] (5/325)) 1 tab Q6H PRN PO .MOD PAIN 4- 6; Start 05/22/18 at 18:00 Enoxaparin Sodium (Lovenox) 30 mg DAILY SC Last administered on 05/23/18 08:26; Admin Dose 30 MG; Start 05/23/18 at 09:00 Lorazepam (Ativan) 1 mg ONCE PRN IV prior to MRI Last administered on 05/23/18 14:15; Admin Dose 1 MG; Start 05/22/18 at 20:30; Stop 05/23/18 at 20:29 Metoprolol Tartrate (Lopressor) 12.5 mg BID PO ; Start 05/23/18 at 21:00 Aspirin (Halfprin) 81 mg DAILY PO ; Start 05/24/18 at 09:00 Past Medical History reviewed Medical History: hypertension Home Meds Reported Medications Amlodipine Besylate* (Amlodipine Besylate*) 10 Mg Tablet, 10 MG PO DAILY, #30 TAB 03/04/17 [Atorvastatin] No Conflict Check, PO DAILY 12/12/15 [Losartan] No Conflict Check, PO DAILY 12/12/15 Medications Current Medications Amlodipine Besylate (Norvasc) 10 mg DAILY PO Last administered on 05/23/18 08:21; Admin Dose 10 MG; Start 05/23/18 at 09:00 Atorvastatin Calcium (Lipitor) 20 mg HS PO ; Start 05/22/18 at 21:00 IV Flush (NS 3 ml) 3 ml PER PROTOCOL IV ; Start 05/22/18 at 18:00 Acetaminophen/ Hydrocodone Bitart ([place] (5/325)) 1 tab Q6H PRN PO .MOD PAIN 4- 6; Start 05/22/18 at 18:00 Enoxaparin Sodium (Lovenox) 30 mg DAILY SC Last administered on 05/23/18 08:26; Admin Dose 30 MG; Start 05/23/18 at 09:00 Lorazepam (Ativan) 1 mg ONCE PRN IV prior to MRI Last administered on 05/23/18at 14:15; Admin Dose 1 MG; Start 05/22/18 at 20:30; Stop 05/23/18 at 20:29 Metoprolol Tartrate (Lopressor) 12.5 mg BID PO ; Start 05/23/18 at 21:00 Aspirin (Halfprin) 81 mg DAILY PO ; Start 05/24/18 at 09:00 Allergies: Uncoded Allergies: PCN (Adverse Reaction, Severe, RASHES, 03/04/17) Past Surgical History reviewed Past Surgical Hx: no surgical history Social History reviewed Alcohol Use: none Smoking Status: Never smoker Drug Use: none HILARY YOUNG NP May 23, 2018 16:59 MARLON KESSLER May 24, 2018 06:26
[2018-05-23] MEDS ORDERED: METHYLPREDNISOLONE 125 MG INJ IV SCH (17:30)
[2018-05-23] MEDS: ATORVASTATIN 20 MG TAB PO SCH (20:57)
[2018-05-23] MEDS: VALACYCLOVIR 500 MG TAB PO SCH (20:57)
[2018-05-23] MEDS: METOPROLOL 25 MG TAB PO SCH (21:01)
[2018-05-24 00:04] VITALS: PULSE 56
[2018-05-24 04:00] VITALS: PULSE 54
[2018-05-24] MEDS ORDERED: PANTOPRAZOLE (EC) 40 MG TAB PO SCH (06:30)
[2018-05-24 07:28] VITALS: BP 128/77; PULSE 64; RESP 16
[2018-05-24 08:05] VITALS: PULSE 78
[2018-05-24] MEDS: AMLODIPINE 10 MG TAB PO SCH (08:52)
[2018-05-24] MEDS: VALACYCLOVIR 500 MG TAB PO SCH (08:52)
[2018-05-24] MEDS: METOPROLOL 25 MG TAB PO SCH (08:53)
[2018-05-24] MEDS ORDERED: ASPIRIN (EC) 81 MG TAB PO SCH (09:00)
[2018-05-24] MEDS ORDERED: predniSONE 20 MG TAB PO SCH (09:00)
[2018-05-24] MEDS: ENOXAPARIN 30 MG/0.3 ML SYG SC SCH (09:03)
[2018-05-24 11:20] VITALS: BP 127/60; PULSE 64; RESP 16
[2018-05-24 12:03] VITALS: PULSE 66
[2018-05-24] MEDS ORDERED: PANT40TA4 PO (13:50)
[2018-05-24] MEDS ORDERED: METO-448 PO (13:50)
[2018-05-24] MEDS ORDERED: PRED20TA PO (13:50)
[2018-05-24] MEDS ORDERED: VALA500T PO (13:50)
--- NOTE | 2018-05-24 13:53 | PDOCDIS ---
Discharge Instructions CONDITION [id number] Patient Condition: [id number] Stable HOME CARE INSTRUCTIONS: [id number] Diet Instructions: [id number] Low Fat /Cholesterol FOLLOW UP/APPOINTMENTS Follow-up Plan Follow-up with your primary care physician in 1 week. OTHER ORDERS: Other Orders: 1. Resume home medications. Stop taking losartan. Start taking Lopressor. 2. Complete the course of steroids and antivirals. Please take Protonix while taking steroids to decrease gastric irritation. 3. Resume activities as tolerated. 4. Follow-up with your primary care physician in 1 week. 5. Please take a low-cholesterol diet. 6. Please go to the nearest emergency room if you have sudden onset of focal weakness, worsening facial weakness, or any other unusual signs/symptoms. NATHAN KIM NP May 24, 2018 13:53
--- NOTE | 2018-05-24 14:32 | DS ---
Date/Time of Note Date/Time of Note DATE: 05/24/18 TIME: 14:32 Discharge Summary Admission/Discharge Info Admit Date/Time May 22, 2018 at 17:05 Discharge Date/Time Discharge Diagnosis 1. Brantley's palsy. 2. Hypertension. 3. Dyslipidemia. 4. Acute kidney injury. Unknown baseline creatinine. 5. Mild to moderate aortic stenosis. 6. Obesity. BMI more than 35 kg/m. Patient Condition: Stable Consults 1. Bailey Marshall MD, Neurology. Procedures Brain MRI IMPRESSION: No evidence of acute intracranial pathology. 2D Echocardiogram Conclusions: Normal left ventricular systolic function. Normal left ventricular cavity size. Mild concentric left ventricular hypertrophy. Ejection fraction is visually estimated at 65 %. Tissue Doppler/Mitral Doppler indices are consistent with impaired relaxation (Stage I diastolic dysfunction). Mild mitral leaflet calcification. Mild mitral annular calcification. Trace mitral regurgitation. Mild to moderate aortic stenosis. Aortic valve Max velocity 2.81 m/sec. Max PG 31.60 mmHg. Mean PG 17.00 mmHg. Aortic valve area 1.18 cm2. Aortic cusps appear moderately calcified. Normal appearance of the tricuspid valve. Estimated peak PA systolic pressure 27 mmHg. There is mild tricuspid regurgitation. Hx of Present Illness This is a 63-year-old female with past medical history of hypertension dyslipidemia. The patient came to the emergency room with chief complaint of headache with blurred vision and facial droop. The patient was noted to have blood pressure in 200s at home. The patient was admitted to inpatient setting for further treatment and evaluation. Hospital Course The patient was started on aspirin and statins. The patient's brain CT scan was negative for any acute findings. The patient subsequently underwent a brain MRI that was negative for any acute findings. Neurology consult was obtained. The patient's presenting symptoms were most consistent with Brantley's palsy. Therefore, the patient was started on steroids and antivirals with improvement in the patient's symptoms. The patient's chronic problems include hypertension. The patient was maintained on antihypertensives. The patient was noticed to be taking calcium channel blockers and ARB's. However, the patient was noticed to have some acute kidney injury. The patient's baseline creatinine is unknown. The patient's ARB was discontinued and the patient was started on low-dose beta-blockers. The patient had an audible murmur on physical examination. The patient's 2D echocardiogram showed mild to moderate aortic stenosis. The patient's ejection fraction was preserved. The patient had underlying dyslipidemia. The patient was maintained on statins. The patient's hemoglobin A1c was within normal limits. The patient was also obese with a BMI of more than 35 kg/m square. The patient was advised on weight reduction. The patient had a stable hospital course. The is patient stable to be discharged home on oral steroids and oral antivirals, to be followed up with outpatient neurology. Discharge Instructions 1. Resume home medications. Stop taking losartan. Start taking Lopressor. 2. Complete the course of steroids and antivirals. Please take Protonix while taking steroids to decrease gastric irritation. 3. Resume activities as tolerated. 4. Follow-up with your primary care physician in 1 week. 5. Please take a low-cholesterol diet. 6. Please go to the nearest emergency room if you have sudden onset of focal weakness, worsening facial weakness, or any other unusual signs/symptoms. The patient verbalized understanding of her discharge instructions. At this time I would like to thank all the consultants for seeing the patient and providing clinical recommendations. The patient's discharge instructions along with patient's clinical condition was explained to the patient's daughter over the phone. The patient was seen in collaboration with Dr. Mi. Home Meds Active Scripts Valacyclovir Hcl* (Valacyclovir Hcl*) 500 Mg Tablet, 1000 MG PO TID for 7 Days, #21 TAB Prov:NATHAN KIM NP 05/24/18 Metoprolol Tartrate* (Lopressor*) 25 Mg Tab, 12.5 MG PO BID, #30 TAB Prov:NATHAN KIM NP 05/24/18 Pantoprazole* (Pantoprazole*) 40 Mg Tablet., 40 MG PO DAILY@06, #10 TAB Prov:NATHAN KIM NP 05/24/18 Prednisone* (Prednisone*) 20 Mg Tab, 60 MG PO DAILY for 7 Days, #7 TAB Prov:NATHAN KIM NP 05/24/18 Reported Medications Amlodipine Besylate* (Amlodipine Besylate*) 10 Mg Tablet, 10 MG PO DAILY, #30 TAB 03/04/17 [Atorvastatin] No Conflict Check, PO DAILY 12/12/15 Discontinued Reported Medications [Losartan] No Conflict Check, PO DAILY 12/12/15 Follow-up Plan Follow-up with your primary care physician in 1 week. Primary Care Provider Not On Staff Doctor Time spent on discharge: > 30 minutes Pending Labs Laboratory Tests Test 05/24/18 04:56 White Blood Count 5.0 10^3/ul (4.8-10.8) Red Blood Count 4.06 10^6/ul (4.20-5.40) Hemoglobin 13.2 g/dl (12.0-16.0) Hematocrit 37.8 % (37.0-47.0) Mean Corpuscular Volume 93.1 fl (82.0-101.0) Mean Corpuscular Hemoglobin 32.5 pg (29.0-33.0) Mean Corpuscular Hemoglobin Concent 34.9 g/dl (32.0-37.0) Red Cell Distribution Width 10.9 % (11.5-14.5) Platelet Count 158 10^3/UL (140-415) Mean Platelet Volume 10.5 fl (7.4-10.4) Immature Granulocytes % 0.600 % (0.001-0.429) Neutrophils % 84.5 % (39.0-77.0) Lymphocytes % 13.5 % (15.0-51.0) Monocytes % 1.2 % (0.0-11.0) Eosinophils % 0.0 % (0.0-7.0) Basophils % 0.2 % (0.0-2.0) Nucleated Red Blood Cells % 0.0 /100WBC (0.0-0.0) Immature Granulocytes # 0.030 10^3/ul (0.0-0.031) Neutrophils # 4.2 10^3/ul (1.6-7.5) Lymphocytes # 0.7 10^3/ul (0.8-2.9) Monocytes # 0.1 10^3/ul (0.3-0.9) Eosinophils # 0.0 10^3/ul (0.0-0.5) Basophils # 0.0 10^3/ul (0.0-0.1) Nucleated Red Blood Cells # 0.0 10^3/ul (0.0-0.0) Sodium Level 143 mmol/L (135-144) Potassium Level 4.7 mmol/L (3.5-5.1) Chloride Level 102 mmol/L (97-110) Carbon Dioxide Level 26 mmol/L (21-31) Anion Gap 15 (5-13) Blood Urea Nitrogen 28 mg/dl (7-20) Creatinine 1.12 mg/dl (0.44-1.00) Est Glomerular Filtrat Rate mL/min 49 mL/min (>60) Glucose Level 188 mg/dl (70-220) Calcium Level 10.4 mg/dl (8.4-10.2) Phosphorus Level 3.5 mg/dl (2.5-4.9) Magnesium Level 2.2 mg/dl (1.7-2.5) NATHAN KIM NP May 24, 2018 14:32
--- NOTE | 2018-05-24 15:42 | CONS ---
Assessment/Plan Assessment/Plan Hospital Course 63 yo F with multiple comorbidities who presents for evaluation of a L facial droop and other sx... for which neurology is consulted. 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 MRI brain is reassuringly without acute intracranial pathology. P: Predisone 60mg daily, valtrex 1g BID x 10 days (with Protonix) Other medical management per primary Will follow clinically Consultation Date/Type/Reason Admit Date/Time May 22, 2018 at 17:05 Type of Consult Neurology Reason for Consultation face weakness Requesting Provider: YANG SALAZAR MD Date/Time of Note DATE: 05/24/18 TIME: 15:41 24 HR Interval Summary Free Text/Dictation Continues acute care s/p MRI brain Exam Vital Signs Vitals Vital Signs Date Temp Pulse Resp B/P (MAP) Pulse Ox O2 O2 Flow FiO2 Time Delivery Rate 05/24/18 66 12:03 05/24/18 97.5 16 127/60 95 11:20 (82) 05/23/18 Room Air 20:54 Intake and Output 05/23/18 05/23/18 05/24/18 1515:00 23:00 07:00 IntakeIntake Total 650 ml 400 ml BalanceBalance 650 ml 400 ml Exam PE: Gen Appearance: No Apparent Distress HEENT: Normocephalic Cardiovascular: Regular rate Lungs: Clear bilaterally Abdomen: Soft Extremities: Dry NE: The patient was alert and oriented. Language was normal. Fund of knowledge was normal. Pupils were equal and reactive to light. There was no afferent pupillary defect. Visual dee were normal. Funduscopic examination showed sharp disc margins and spontaneous venous pulsations. Extra-ocular movements were full. Ptosis was absent. There was no nystagmus. Facial sensation was normal. Face was asymmetric w/ R face weakness.. Hearing was intact. Palate movements were normal. Neck strength was normal. There was normal tongue bulk and speed of movement. Tone was normal. Muscle bulk was normal. I did not see fasciculations. Arms and legs were strong. Vibration sensation was normal. Temperature and pinprick sensation was normal. Rapid alternating movements were normal. There was no dysmetria. There was no intention tremor. Gait was deferred due to bedrest. Arm and leg reflexes were 2+ and symmetric. Coburn's sign was absent. Plantar responses were flexor. MARLON KESSLER 20, 2019 15:42
== END 2018-05-24 17:00 | disposition home or self-care (01) | DRG 74 ==
LOC: E/R 15:09 → 6WM 17:05
PROVIDERS: ADMIT Internal Medicine; ATTEND Internal Medicine
DX: G51.0 Bell's palsy (principal); N17.9 Acute kidney failure, unspecified; E78.5 Hyperlipidemia, unspecified; I10 Essential (primary) hypertension; I35.0 Nonrheumatic aortic (valve) stenosis; I16.0 Hypertensive urgency; E66.9 Obesity, unspecified; Z68.35 Body mass index [BMI] 35.0-35.9, adult; Z79.82 Long term (current) use of aspirin
CPT/HCPCS: 36415; 70450; 70551; 71045; 80048; 80053; 80061; 80307; 81001; 83036; 83735; 84100; 84484; 85025; 85610; 85730; 93005; 93306; J1650; J2060; J2930; J7512